=== PATIENT | male | born 2000 | race Caucasian/White ===

== ENCOUNTER 2021-10-21 12:39 | Outpatient (RCR) | payer BC, SELFPAY ==
[2021-10-21 13:55] LABS: INR 1.8; Prothrombin Time 20.2 Seconds (11.1-14.7)
== END 2022-01-19 23:59 | disposition home or self-care (01) ==
LOC: ANHLAB 12:39
PROVIDERS: PCP Family Medicine; Visit Provider Internal Medicine Cardiovascular Disease
DX: Z95.2 Presence of prosthetic heart valve (principal); Z79.01 Long term (current) use of anticoagulants
CPT/HCPCS: 36415; 85610

== ENCOUNTER 2024-07-31 12:05 | Outpatient (CLI) | payer BC, SELFPAY ==
[2024-07-31 13:04] LABS: Basophils Percent Auto 0.2 % (0.2-1.2); Eosinophils Absolute Auto 0.1 K/mm3 (0-0.3); Eosinophils Percent Auto 1.6 % (0-4.4); Hematocrit 41.2 % (42.0-52.0); Hemoglobin 13.1 g/dL (14.0-18.0); Immature Granulocyte Absolute 0.02 K/mm3 (0.00-0.031); Immature Granulocyte Percent A 0.3 % (0-0.5); Lymphocytes Absolute Auto 1.65 K/mm3 (0.9-3.2); Lymphocytes Percent Auto 28.8 % (18.3-44.2); Mean Corpuscular HGB Conc 31.8 g/dl (32-36); Mean Corpuscular Hemoglobin 27.7 pg (26-34); Mean Corpuscular Volume 87.1 fl (80-100); Mean Platelet Volume 10.4 fl (7.4-10.4); Monocytes Absolute Auto 0.5 K/mm3 (0.1-0.6); Monocytes Percent Auto 8.2 % (2.6-8.5); Neutrophils Absolute Auto 3.5 K/mm3 (1.3-6.7); Neutrophils Percent Auto 60.9 % (45.5-73.1); Platelet Count Result 264 k/mm3 (150-375); Red Blood Count 4.73 M/mm3 (4.6-6.20); Red Cell Distribution Width 13.4 % (11.5-14.5); White Blood Count 5.7 K/mm3 (4.5-10.0)
[2024-07-31 13:05] LABS: Alanine Aminotransferase 22 U/L (6-50); Alkaline Phosphatase 85 U/L (38-126); Anion Gap 8 mmol/L (4-12); Aspartate Amino Transferase 23 U/L (17-59); Bilirubin,Total 0.6 mg/dL (0.2-1.3); Blood Urea Nitrogen 12 mg/dL (9-20); Calcium 9.1 mg/dL (8.4-10.2); Carbon Dioxide 27 mmol/L (22-30); Chloride 104 mmol/L (98-107); Cholesterol 148 mg/dL (0-200); Estimated Glomerular Filt Rate > 60; Glucose 105 mg/dL (65-110); HDL Direct 29 mg/dL; Potassium 4.4 mmol/L (3.4-5.0); Sodium 139 mmol/L (137-145); Triglycerides 122 mg/dL (<150)
[2024-07-31 13:16] LABS: LDL Cholesterol Direct 90 mg/dL
--- OUTSIDE RECORDS SUMMARY | 2024-07-31 13:50 | XMS_ITS | Encounter Summary ---
Author Organization [facility] Address [address] [place] [address] Phone Care Team Providers Care Load Out Person Name Role Phone Pino Weber MD Primary Care Provider [phone] Silas Rodriguez MD Unavailable [phone] Encounter Details Date Type Department Care Team (Late st Contact Info) Description 07/24/2024 Telephone [facility] Cardiology [address] [place] [address] [place] [address] Silas Rodrgiuez MD [address] [place] [address] Social History Tobacco Use Types Packs/Day Years Used Date Smoking Tobacco: Never Smokeless Tobacco: Never Alcohol Use Standard Drinks/Week Comments Not Currently 0 (1 standard drink = 0.6 oz pur e alcohol) AUDIT-C Answer Date Recorded Q1: How often do you have a drink containing alc ohol? Never 09/09/2021 Average Number of Drinks Not on file 022 Frequency of Binge Drinking Not on file 10/2021 Sex and Gender Information Value Date Recorded Sex Assigned at Not on file Legal Sex Male 10:53 AM CDT Gender Identity Not on file Sexual Orientation Not on file documented as of this encounter Miscellaneous Notes * Telephone Encounter - Jennifer Ignacio, RN - 07/24/2024 1:45 PM CST I spoke with TY. Pt is scheduled 07/31/[address] Weber. She will fax lab results. DEBEADER * Telephone Encounter - Leti Hanna - 07/24/2024 1:08 PM CST Jennifer Pls refer to My Chart msg dated 06/13 re: request for pt to have bloodwork completed and to see hisPCP. TY with Dr Pino Weber's office - [facility] calling to let you know pt did call their office requesting to have the blood work done that Dr Rodriguez recommended. They have not seen him in the office since 2022. She will call the pt and see if she can get him scheduled for an appointment. DEBEADER documented in this encounter Plan of Treatment Not on file documented as of this encounter Visit Diagnoses Not on filedocumented in this encounter Care Teams Load Out Person Relationship Specialty Start Date End Date Pino Weber MD [address] [place] [id number] PCP - General Family Medicine 05/15/19 Silas Rodriguez MD [address] [place] [id number] Referring Physician Cardiology 05/19/19 documented as of this encounter
--- OUTSIDE RECORDS SUMMARY | 2024-07-31 13:50 | XMS_ITS | Clinical Summary ---
Author Organization [facility] Address [address] [place] [address] Care Team Providers Care Assembler Tubing Name Role Phone Vini Leonardo MD Primary Care Provider [phone] Source Comments [facility],non-owned Affiliates and Associated Physician Practices is amultiple site organization consisting of ambulatory clinics and hospital sitesin [place], [place], [place] and [place]. This disclosure is being madepursuant to the Care Everywhere program and may not contain all information available regarding this patient. Last updated 18.[facility] Allergies No known active allergies Medications * Be aware that medications may not be up to date on this document. Alwaysverify current medications with the patient. Medication Sig Dispensed Refills Start Date End Date Status atenolol (TENORMIN) 100 MG tablet Take 1 tablet by mouth once daily 30 tablet 11 06/03/2017 Active losartan (COZAAR) 50 MG tablet Take 1 tablet by mouth once daily 30 tablet 6 10/21/2017 Active Active Problems Problem Noted Date Diagnosed Date Dilated aortic root 10/15/2011 Marfan's disease 11/05/2009 Lens subluxation 10/23/2009 Amblyopia, refractive 10/23/2009 Anisometropia 10/23/2009 High myopia 10/23/2009 Family History Medical History Relation Name Comments Arrhythmia Neg Hx CVA<55(male) Neg Hx CVA<65(female) Neg Hx Cardiomyopathy Neg Hx Congenital Heart defect Neg Hx Heart Surgery Neg Hx Long QT Syndrome Neg Hx TN<55(male) Neg Hx TN<65(female) Neg Hx Marfan Syndrome Neg Hx Pacemaker Neg Hx Sudd. <30 Neg Hx Social History Tobacco Use Types Packs/Day Years Used Date Smoking Tobacco: Never Smokeless Tobacco: Never Sex and Gender Information Value Date Recorded Sex Assigned at Not on file Gender Identity Not on file Sexual Orientation Not on file Last Filed Vital Signs Vital Sign Reading Time Taken Comments Blood Pressure 108/52 10/20/2017 10:16 AM CDT Pulse 64 10/20/2017 10:16 AM CDT Temperature - - Respiratory Rate 12 10/20/2017 10:1 6 AM CDT Oxygen Saturation 96% 10/20/2017 10: 16 AM CDT Inhaled Oxygen Concentration - - Weight 136.5 kg (300 lb 14.9 oz) 2017 10:16 AM CDT Height 199.5 cm (6' 6.54 ) 10/20/2017 1 0:16 AM CDT Body Mass Index 34.3 10/20/2017 10:16 AM CDT Plan of Treatment Health Maintenance Due Date Last Done Comments HIV SCREENING 02/09/2015 HPV VACCINE (1 - Male 3-dose series) 02/09/2015 HEPATITIS C SCREENING 02/05/2018 DTAP/TDAP/TD VACCINES (1 - Tdap) 02/09/2019 HEPATITIS B VACCINE (1 of 3 - 19+ 3-dose series) 02/09/2019 COVID-19 VACCINE (1 - 2023-2 5 season) 2024 INFLUENZA VACCINE (#1) 2024 DEPRESSION SCREENING 06/07/2024 ZOSTER VACCINE (1 of 2) 02/09/2050 HIB VACCINE Aged Out No longer eligi ble based on patient's age to complete this topic MENINGOCOCCAL (Group B) VACCINE Aged Out No longer eligible based on patient's age to complete this topic MENINGOCOCCAL VACCINE Aged Out No gregoria ileana eligible based on patient's age to complete this topic PNEUMOCOCCAL VACCINE Aged Out No long er eligible based on patient's age to complete this topic Care Teams Assembler Tubing Relationship Specialty Start Date End Date Vini Leonardo MD [address] [place] [id number] PCP - General 10/13/10
--- OUTSIDE RECORDS SUMMARY | 2024-07-31 13:50 | XMS_ITS | Referral Summary ---
Author Organization [facility] Address [address] [place] [address] Care Team Providers Care Rail Equipment Operator Name Role Phone Pino Weber MD Primary Care Provider [phone] Silas Rodriguez MD Unavailable [phone] Encounters Date Type Department Care Team Description 07/26/2024 Anticoagulation Telephone Call [address] 8th [place] [address] [place] [phone] Silas Rodriguez MD remote computer terminal operator (current) use of anticoagulants (Primary Dx); H/O mechanical aortic valve replacement 07/24/[address] 8[address] [place] [address] [place] [phone] Silas Rodriguez MD 07/11/[address] 8[address] [place] [address] [place] [address] Silas Rodriguez MD Anticoagulation 06/27/2024 Anticoagulation Telephone Call [address] 8[address] [place] [address] [place] [address] Silas Rodriguez MD remote computer terminal operator (current) use of anticoagulants (Primary Dx); H/O mechanical aortic valve replacement 06/19/[address] 8[address] [place] [address] [place] [phone] Silas Rodriguez MD Anticoagulation 06/02/2024 Anticoagulation Telephone Call [address] [facility] [address] [place] [phone] Silas Rodriguez MD USP (current) use of anticoagulants (Primary Dx); H/O mechanical aortic valve replacement 06/02/2024 Orders Only [facility] Scanning, Provider 05/16/[address] [facility] 8th [place] [address] [place] [address] Silas Rodriguez MD 05/16/2024 Anticoagulation Telephone Call [address] 8[address] [place] [address] [place] [address] Silas Rodriguez MD remote computer terminal operator (current) use of anticoagulants (Primary Dx); H/O mechanical aortic valve replacement 05/16/[address] [facility] 8th [place] [address] [place] [address] Silas Rodriguez MD Anticoagulation 05/15/[address] 8[address] [place] [address] [place] [address] Silas Rodriguez MD Labs Only 05/02/2024 11:15 AM ALL AROUND PRESSER Office Visit [address] [place] [address] [place] [address] Silas Rodriguez MD H/O mechanical aortic valve replacement (Primary Dx); remote computer terminal operator (current) use of anticoagulants; Marfan's disease 05/02/2024 9:15 AM ALL AROUND PRESSER - 05/02/2024 11:59 PM ALL AROUND PRESSER Hospital Encounter [facility] [address] [place] [id number] H/O mechanical aortic valve replacement Discharge Disposition: Discharge to home or self care 05/01/2024 Anticoagulation Telephone Call [address] [facility] [address] [place] [phone] Silas Rodriguez MD remote computer terminal operator (current) use of anticoagulants (Primary Dx); H/O mechanical aortic valve replacement from Last 3 Months Allergies No known active allergies Medications acetaminophen (TYLENOL) 500 mg tabletIndicatio ns:Pain Take 2 tablets (1,000 mg total) by mouth every 6 (six) hours as needed for pain Active aspirin 81 mg enteric coated tablet Take 1 tablet (81 mg total) by mouth daily 30 tablet 11 09/17/2021 Active amoxicillin (AMOXIL) 500 mg tablet/capsuleI ndications:Prop hylaxis, Medical Take 4 tablets I hour prior to visit 05/05/2023 Active warfarin (COUMADIN) 1 mg tablet TAKE 6 TABLETS BY MOUTH ON WEDNESDAY, WEDNESDAY, AND WEDNESDAY, TAKE 5 TABLETS BY MOUTH ON ALL OTHER DAYS 430 tablet 3 04/24/2024 Active losartan (COZAAR) 25 mg tablet TAKE 1 TABLET (25 MG TOTAL) BY MOUTH DAILY. 90 tablet 3 05/11/2024 Active atenoloL (TENORMIN) 100 mg tablet TAKE 1 TABLET BY MOUTH NIGHTLY 90 tablet 3 05/28/2024 Active Active Problems Problem Noted Date Diagnosed Date USP (current) use of anticoagulants 2021 H/O mechanical aortic valve replacement 09/17/19 High risk medication use 09/14/2021 Assessment & Plan (09/15/2021 12:54 PM CDT): Lifetime use of coumadin for mechanical AVR INR goal of 2-3 Coumadin teaching with pharmacy completed 09/12 Dr. Rodriguez will follow INR Assessment & Plan (09/14/2021 10:59 AM CDT): Lifetime use of coumadin for mechanical AVR INR goal of 2-3 Coumadin teaching with pharmacy completed 09/12 Dr. Rodriguez will follow INR Acute post-operative pain 09/12/2021 Assessment & Plan (09/15/2021 12:47 PM CDT): Expected post-operatively - PRN tylenol, flexeril, and oxycodone - teach splinting technique Assessment & Plan (09/14/2021 10:55 AM CDT): Expected post-operatively - PRN tylenol, flexeril, and oxycodone - teach splinting technique Assessment & Plan (09/13/2021 11:31 AM CDT): Expected post-operatively - PRN tylenol, flexeril, and oxycodone - teach splinting technique Assessment & Plan (09/12/2021 10:01 AM CDT): Expected post-operatively - PRN tylenol, flexeril, and oxycodone - teach splinting technique Acute blood loss anemia 09/12/2021 Assessment & Plan (09/15/2021 12:47 PM CDT): Expected post-operatively - Hgb is stable - no active signs of bleeding - transfuse if Hgb < 7 or he becomes hemodynamically unstable - monitor CBC Assessment & Plan (09/14/2021 10:55 AM CDT): Expected post-operatively - Hgb is stable - no active signs of bleeding - transfuse if Hgb < 7 or he becomes hemodynamically unstable - monitor CBC Assessment & Plan (09/13/2021 11:31 AM CDT): Expected post-operatively - Hgb is stable - no active signs of bleeding - transfuse if Hgb < 7 or he becomes hemodynamically unstable - monitor CBC Assessment & Plan (09/12/2021 10:03 AM CDT): Expected post-operatively - Hgb is stable - no active signs of bleeding - transfuse if Hgb < 7 or he becomes hemodynamically unstable - monitor CBC Hypertension 09/12/2021 Assessment & Plan (09/15/2021 12:48 PM CDT): Home medications: atenolol 100mg daily, losartan 50mg daily - holding losartan in jovan-op setting - continue atenolol as able Assessment & Plan (09/14/2021 10:56 AM CDT): Home medications: atenolol 100mg daily, losartan 50mg daily - holding losartan in jovan-op setting - increase atenolol as able Assessment & Plan (09/13/2021 11:33 AM CDT): Home medications: atenolol 100mg daily, losartan 50mg daily - holding losartan in jovan-op setting - increase atenolol as able Assessment & Plan (09/12/2021 10:05 AM CDT): Home medications: atenolol 100mg daily, losartan 50mg daily - holding losartan in jovan-op setting - increase atenolol as able Obstructive sleep apnea 09/12/2021 Assessment & Plan (09/15/2021 12:48 PM CDT): Recently diagnosed with MIKAELA - per family, CPAP has been ordered for home - continue CPAP while inpatient Assessment & Plan (09/14/2021 10:56 AM CDT): Recently diagnosed with MIKAELA - per family, CPAP has been ordered for home - continue CPAP while inpatient Assessment & Plan (09/13/2021 11:35 AM CDT): Recently diagnosed with MIKAELA - per family, CPAP has been ordered for home - continue CPAP while inpatient Assessment & Plan (09/12/2021 10:06 AM CDT): Recently diagnosed with MIKAELA but does not have CPAP at home - continue CPAP while inpatient Leukocytosis 09/11/2021 Assessment & Plan (09/15/2021 12:46 PM CDT): WBC down to 10.3 from 12.2 - likely post-inflammatory - UA 4/7 was negative - Daily CBC - Aggressive Pulmonary toilet Assessment & Plan (09/14/2021 10:56 AM CDT): WBC 12.2 from 12 from 16.6 from 19.4 from 16.1 - likely post-inflammatory - UA 4/7 was negative - Daily CBC - Aggressive Pulmonary toilet Assessment & Plan (09/13/2021 11:34 AM CDT): WBC down to 12 from 16.6 from 19.4 from 16.1 - likely post-inflammatory - UA / was negative - Daily CBC - Aggressive Pulmonary toilet Assessment & Plan (09/12/2021 9:49 AM CDT): WBC 16.6 from 19.4 from 16.1 - likely post-inflammatory UA 09/11 was negative Daily CBC Aggressive Pulmonary toilet Assessment & Plan (09/11/2021 7:46 AM CDT): Daily CBC Aggressive Pulmonary toilet CXR UA Low cardiac output syndrome (CMS/HCC) 09/09/2021 Bicuspid aortic valve 06/30/2021 Assessment & Plan (09/15/2021 12:45 PM CDT): S/p ortic root replacement (25mm On-X mechanical valve in a 30mm Hemashield graft, direct reimplantation of coronary arteries) 4/5 - PT/OT - Bowel regimen - continue DVT prophylaxis until therapeutic INR - Aggressive pulmonary toilet - Wires and tubes out - on RA - switch lasix to 40mg PO bid from IV + K supplement - continue atenolol - Continue coumadin dosing - Dr. Rodriguez has agreed to follow Coumadin - will need to call his RNJennifer, when he discharges - Coumadin teaching - Discharge planning Assessment & Plan (09/14/2021 10:55 AM CDT): S/p ortic root replacement (25mm On-X mechanical valve in a 30mm Hemashield graft, direct reimplantation of coronary arteries) 4/5 - PT/OT - Bowel regimen - continue DVT prophylaxis until therapeutic INR - Aggressive pulmonary toilet - Wires and tubes out - on RA - switch lasix to 40mg PO bid from IV + K supplement - Increase atenolol - Continue coumadin dosing - Dr. Rodriguez has agreed to follow Coumadin - will need to call his RNJennifer, when he discharges - Coumadin teaching - Discharge planning Assessment & Plan (09/13/2021 11:33 AM CDT): S/p ortic root replacement (25mm On-X mechanical valve in a 30mm Hemashield graft, direct reimplantation of coronary arteries) 4 - PT/OT - Bowel regimen - continue DVT prophylaxis until therapeutic INR - Aggressive pulmonary toilet - Wires and tubes out - on RA - continue lasix to 40mg IV bid + K supplement - Increase atenolol - Continue coumadin dosing - Dr. Rodriguez has agreed to follow Coumadin - will need to call his RN, Jennifer, when he discharges - Coumadin teaching - Discharge planning Assessment & Plan (09/12/2021 9:48 AM CDT): S/p ortic root replacement (25mm On-X mechanical valve in a 30mm Hemashield graft, direct reimplantation of coronary arteries) 4/5 PT/OT Bowel regimen DVT prophylaxis pending therapeutic INR Aggressive pulmonary toilet Wires and tubes out Wean oxygen Increase lasix to 40mg IV bid + K supplement Increase atenolol Continue coumadin dosing Arrange coumadin follow-up possibly with Dr. Rodriguez, left a message for his nurses Coumadin teaching Discharge planning Assessment & Plan (09/11/2021 7:44 AM CDT): S/P mechanical AVR PT/OT Aggressive pulmonary toilet Plan to DC CT & wires today Add lasix Continue coumadin dosing Ascending aortic aneurysm 06/21/2019 Overview (06/21/2019): Added automatically from request for surgery [id number] Marfan's disease 11/05/2009 Assessment & Plan (09/15/2021 12:45 PM CDT): Dr. Rodriguez's follows - notified his office that patient is s/p surgery 09/12 - Dr. Rodriguez will follow coumadin Assessment & Plan (09/14/2021 10:56 AM CDT): Dr. Rodriguez's follows - notified his office that patient is s/p surgery 09/12 - Dr. Rodriguez will follow coumadin Assessment & Plan (09/13/2021 11:34 AM CDT): Dr. Heller follows - notified his office that patient is s/p surgery 09/12 - Dr. Rodriguez will follow coumadin Assessment & Plan (09/12/2021 9:50 AM CDT): Dr. Heller follows - notified his office that patient is s/p surgery 09/12 Assessment & Plan (09/11/2021 7:45 AM CDT): Dr. Rodriguez's follows Immunizations Immunization Administration Dates Next Due Pfizer SARS-CoV-2 Monovalent Vaccination (12+ Yrs) PURPLE 10/24/2020,10/01/2020 Social History Tobacco Use Types Packs/Day Years Used Date Smoking Tobacco: Never Smokeless Tobacco: Never Tobacco Cessation:Counseling Given: Not Answered Alcohol Use Standard Drinks/Week Comments Not Currently [...] Sign Reading Time Taken Comments Blood Pressure 133/77 05/02/2024 11:18 AM ALL AROUND PRESSER Pulse 59 05/02/2024 11:18 AM ALL AROUND PRESSER Temperature 36.8 C (98.3 F) 10/14/2021 12:00 AM CDT Respiratory Rate 18 10/14/2021 12:00 AM CDT Oxygen Saturation 95% 05/02/2024 11:18 AM ALL AROUND PRESSER Inhaled Oxygen Concentration - - Weight 219.5 kg (484 lb) 05/02/2024 11:18 AM ALL AROUND PRESSER Height 203.2 cm (6' 8 ) 05/02/2024 11:18 AM ALL AROUND PRESSER Body Mass Index 53.17 05/02/2024 11:18 AM ALL AROUND PRESSER Plan of Treatment Not on file Medical Devices Implanted Type Area Relay Associate Device Identifier Shelf Expiration Date Model / Serial / Lot [employer] [id number] Hemashield Napaimute 30mm 30cm Woven Smooth Needle Passage Suture - [id number] - [id number] Implanted:Qty: 1 on 09/09/2021 by Aleksandra Wood MD at [facility] Graft N/A: Heart [employer] 02/04/2026 [id number] / [id number] / Bard Peripheral Vascular 6x6in Patch Thk1.65mm Friendship Cardiovascular Ptfe Sterile Latex Free [id number] - [id number] Implanted:Qty: 1 on 09/09/2021 by Aleksandra Wood MD at [facility] Other - see comments N/A: Heart [employer] 01/01/2026 [id number] / / Description:Friendship strips Valve Aortic On-X Titanium Carbon Ptfe Od34 Mm Cylindrical H14.2 Mm H17.8 Mm Od25 Mm Odsec23.4 Mm Heart Mechanical Anatomic Sewing Ring Extend Rosado Intrasupra Annular - [id number] - [id number] Implanted:Qty: 1 on 09/09/2021 by Aleksandra Wood MD at [facility] Prosthetic Valve N/A: Heart On-X Intrnl 02/20/2027 ONXANE-2 5 / [id number] / Procedures Procedure Name Priority Date/Time Associated Diagnosis Comments PROTIME-INR Routine 07/26/2024 PROTIME-INR Routine 06/24/2024 PROTIME-INR Routine 06/02/2024 SCAN - LABS 06/02/2024 PROTIME-INR Routine 05/16/2024 CTA CHEST W CONTRAST Schedule Routine, Read Routine (OP Routine) 05/02/2024 9:43 AM ALL AROUND PRESSER H/O mechanical aortic valve replacement POCT CREATININE - DEVICE Routine 05/02/2024 9:29 AM ALL AROUND PRESSER from Last 3 Months Results * (ABNORMAL) Protime-INR (07/26/2024) INR 2.00(A) 0.90 - 1.10 EXTERNAL LAB Blood Result [facility] Silas Rodriguez MD LAB BLOOD ORDERABLES F inal Result Performing Organization Address City/[facility]/ZIP Co de Phone Number EXTERNAL LAB * (ABNORMAL) Protime-INR (06/24/2024) INR 2.00(A) 0.90 - 1.10 EXTERNAL LAB Blood 06/24/2024 Silas Rodriguez MD LAB BLOOD ORDERABLES F inal Result Performing Organization Address [facility]/ZIP Co de Phone Number EXTERNAL LAB * SCAN - LABS (06/02/2024) Provider Scanning Final Result * (ABNORMAL) Protime-INR (06/02/2024) INR 2.00(A) 0.90 - 1.10 EXTERNAL LAB Blood 06/02/2024 [facility] Milagro APODACA LAB BLOOD ORDERABLES Evelyn l Result Performing Organization Address City/[facility]/ZIP Co de Phone Number EXTERNAL LAB * (ABNORMAL) Protime-INR (05/16/2024) INR 2.00(A) 0.90 - 1.10 EXTERNAL LAB Blood Result [facility] Silas Rodriguez MD LAB BLOOD ORDERABLES F inal Result EXTERNAL LAB * CTA Chest W Contrast (05/02/2024 9:43 AM ALL AROUND PRESSER) Anatomical Region Laterality Modality Chest N/A Computed Tomogra phy 05/02/2024 10:1 4 AM ALL AROUND PRESSER Impressions 05/02/2024 10:14 AM ALL AROUND PRESSER Stable postsurgical changes of aortic root and ascending aorta repair without evidence of complications. Electronically signed by: Lux El M.D. Narrative 05/02/2024 10:14 AM ALL AROUND PRESSER EXAMINATION: CTA CHEST W CONTRAST HISTORY: Mechanical aortic valve replacement TECHNIQUE: CT angiography of the chest was performed prior to and following the uneventful intravenous administration of 120 ml Optiray-350 using the angiographic protocol. Vascular 3D images were generated on a dedicated workstation and also interpreted. COMPARISON: 05/05/2022 FINDINGS: Mechanical aortic valve is present with ascending aorta reconstruction. The aortic root measures 32 x 31 mm, unchanged. Ascending aorta reconstruction measures 34 x 30 mm through the common, unchanged. There is a left-sided arch with three-vessel branching pattern. No pericardial effusion. The thoracic lymphadenopathy. Thyroid is unremarkable. Esophagus is nondistended. Lungs are clear. No pleural effusions. No pneumothorax. No suspicious pulmonary nodules. No acute or aggressive osseous abnormalities. Median sternotomy. No acute process within the partially imaged abdomen. Procedure Note Lux El MD - 05/02/2024 EXAMINATION: CTA CHEST W CONTRAST HISTORY: Mechanical aortic valve replacement TECHNIQUE: CT angiography of the chest was performed prior to and following the uneventful intravenous administration of 120 ml Optiray-350 using the angiographic protocol. Vascular 3D images were generated on a dedicated workstation and also interpreted. COMPARISON: 05/05/2022 FINDINGS: Mechanical aortic valve is present with ascending aorta reconstruction. The aortic root measures 32 x 31 mm, unchanged. Ascending aorta reconstruction measures 34 x 30 mm through the common, unchanged. There is a left-sided arch with three-vessel branching pattern. No pericardial effusion. The thoracic lymphadenopathy. Thyroid is unremarkable. Esophagus is nondistended. Lungs are clear. No pleural effusions. No pneumothorax. No suspicious pulmonary nodules. No acute or aggressive osseous abnormalities. Median sternotomy. No acute process within the partially imaged abdomen. IMPRESSION: Stable postsurgical changes of aortic root and ascending aorta repair without evidence of complications. Electronically signed by: Lux El M.D. Silas Rodriguez MD IMG CT PROCEDURES Evelyn l Result * POCT creatinine (05/02/2024 9:29 AM ALL AROUND PRESSER) Creatinine POC 1.0 0.7 - 1.3 mg/dL Blood 05/02/2024 9:29 AM ALL AROUND PRESSER 05/02/2024 9:29 AM ALL AROUND PRESSER us Self Referral LAB POCT ORDERABLES - DEVICE Fin al Result Performing Organization Address City/State/[facility] Co de Phone Number [facility] Department [place] [address] from Last 3 Months Insurance [employer] Advance Directives For more information, please contact: [phone] * Full Code (Latest Code Status on File) Date Activated Date Inactivated Comments 09/09/2021 1:18 PM 09/16/2021 6:54 PM Care Teams Rail Equipment Operator Relationship Specialty Start Date End Date Pino Weber MD [address] [place] [address] PCP - General Family Medicine 05/15/19 Silas Rodriguez MD [address] [place] [address] Referring Physician Cardiology 05/19/19
--- OUTSIDE RECORDS SUMMARY | 2024-07-31 13:50 | XMS_ITS | Clinical Summary ---
Author Organization [facility] Address [address] [place] [address] Care Team Providers Care Insurance Verification Specialist Name Role Phone Pino Weber MD Primary Care Provider [phone] Silas Rodriguez MD Unavailable [phone] Allergies No known active allergies Medications acetaminophen [...] Active Problems Problem Noted Date Diagnosed Date emt intermediate (current) use of anticoagulants 2021 H/O mechanical [...] from 16.1 - likely post-inflammatory - UA /7 was negative - Daily CBC - Aggressive Pulmonary toilet Assessment & Plan (09/12/2021 9:49 AM CDT): WBC 16.6 from 19.4 from 16.1 - likely post-inflammatory UA /7 was negative Daily CBC Aggressive Pulmonary toilet [...] (06/21/2019): Added automatically from request for surgery [id number] Marfan's disease 11/05/2009 Assessment & Plan (09/15/2021 12:45 PM CDT): Dr. Rodriguez's follows - notified his office that patient is s/p surgery 09/12 - Dr. Rodriguez will follow coumadin Assessment & Plan (09/14/2021 10:56 AM CDT): Dr. Rodriguez's follows - notified his office that patient is s/p surgery 09/12 - Dr. Rodriguez will follow coumadin Assessment & Plan (09/13/2021 11:34 AM CDT): Dr. Rodriguez's follows - notified his office that patient is s/p surgery 09/12 - Dr. Rodriguez will follow coumadin Assessment & Plan (09/12/2021 9:50 AM CDT): Dr. Heller follows - notified his office that patient is s/p surgery 09/12 Assessment & Plan (09/11/2021 7:45 AM CDT): Dr. Rodriguez's follows Encounters Date Type Department Care Team Description 07/26/2024 Anticoagulation Telephone Call [facility] Cardiology [facility] 8th [place] [address] [place] [address] Silas Rodriguez MD emt intermediate (current) use of anticoagulants (Primary Dx); H/O mechanical aortic valve replacement 07/24/2024 Telephone [facility] Cardiology [facility] 8th [place] [address] [place] [address] Silas Rodriguez MD 07/11/2024 Telephone [facility] Cardiology [facility] 8th [place] [address] [place] [address] Silas Rodriguez MD Anticoagulation 06/27/2024 Anticoagulation Telephone Call [address] [place] [address] Silas Rodriguez MD emt intermediate (current) use of anticoagulants (Primary Dx); H/O mechanical aortic valve replacement 06/19/[address] [place] [address] [place] [address] Silas Rodriguez MD Anticoagulation 06/02/2024 Anticoagulation Telephone Call [address] Medical Office Building [address] [place] [address] Silas Rodriguez MD emt intermediate (current) use of anticoagulants (Primary Dx); H/O mechanical aortic valve replacement 06/02/2024 Orders Only [facility] Scanning, Provider 05/16/[address] [place] [address] Silas Rodriguez MD 05/16/2024 Anticoagulation Telephone Call [address] [place] [address] Silas Rodriguez MD group home (current) use of anticoagulants (Primary Dx); H/O mechanical aortic valve replacement 05/16/[address] [place] [address] Silas Rodriguez MD Anticoagulation 05/15/[address] [place] [address] Silas Rodriguez MD Labs Only 05/02/2024 11:15 AM BIBLIOGRAPHIC SERVICES SPECIALIST Office Visit [address] [place] [address] [place] [address] Silas Rodriguez MD H/O mechanical aortic valve replacement (Primary Dx); group home (current) use of anticoagulants; Marfan's disease 05/02/2024 9:15 AM BIBLIOGRAPHIC SERVICES SPECIALIST - 05/02/2024 11:59 PM BIBLIOGRAPHIC SERVICES SPECIALIST Hospital Encounter [facility] [address] [place] [address] H/O mechanical aortic valve replacement Discharge Disposition: Discharge to home or self care 05/01/2024 Anticoagulation Telephone Call [facility] Cardiology [address] [facility] Medical Office Building [address] [place] [address] Silas Rodriguez MD emt intermediate (current) use of anticoagulants (Primary Dx); H/O mechanical aortic valve replacement from Last 3 Months Immunizations Immunization Administration Dates Next Due Pfizer SARS-CoV-2 Monovalent Vaccination (12+ Yrs) PURPLE 10/24/2020,10/01/2020 Surgical History Surgery Date Site/Laterality Comments EXAMINATION UNDER ANESTHESIA 07/08/2021 - 08/04/2021 ROSE Medical History Medical History Date Comments Marfan's disease Dilated aortic root (CMS/HCC) (HCC) Sleep apnea +Sleep study don e 08/2021 but pt hasn't gotten CPAP machine yet Morbid obesity (HCC) Family History Medical History Relation Name Comments Hypertension Father Anesthesia problems Neg Hx Relation Name Status Comments Father Social History Tobacco Use Types Packs/Day Years [...] on file Sexual Orientation Not on file Obstetrics History Last Filed Vital Signs Vital Sign Reading Time Taken Comments Blood Pressure 133/77 05/02/2024 11:18 AM BIBLIOGRAPHIC SERVICES SPECIALIST Pulse 59 05/02/2024 11:18 AM BIBLIOGRAPHIC SERVICES SPECIALIST Temperature 36.8 C (98.3 F) 10/14/2021 12:00 AM CDT Respiratory Rate 18 10/14/2021 12:00 AM CDT Oxygen Saturation 95% 05/02/2024 11:18 AM BIBLIOGRAPHIC SERVICES SPECIALIST Inhaled Oxygen Concentration - - Weight 219.5 kg (484 lb) 05/02/2024 11:18 AM BIBLIOGRAPHIC SERVICES SPECIALIST Height 203.2 cm (6' 8 ) 05/02/2024 11:18 AM BIBLIOGRAPHIC SERVICES SPECIALIST Body Mass Index 53.17 05/02/2024 11:18 AM BIBLIOGRAPHIC SERVICES SPECIALIST Plan of Treatment Health Maintenance Due Date Last Done Comments Depression Screening 2000 Hepatitis C Screening 2000 DTaP/Tdap/Td Vaccine (3 - Tdap) 02/09/2011 2000, 2000 Varicella Vaccines (1 of 2 - 13+ 2-dose series) 02/09/2013 HPV Vaccines (1 - Male 3-dos e series) 02/09/2015 Regular Well Visit/Exam 18-64 02/09/2018 Covid-19 Vaccine (4 - 2023-2 5 season) 2024 07/05/2021, 10/24/2020, 10/01/2020 Influenza Vaccine (#1) 2024 Hepatitis B Screening Completed 2000 , 2000 Pneumococcal vaccine <65 Aged Out 001, 2000 No longer eligible based on patient's age to complete this topic Medical Devices Implanted Type Area Crayon Molding Machine Operator Device Identifier Shelf Expiration Date Model / Serial / Lot [employer] [id number] Hemashield [place] 30mm 30cm Woven Smooth Needle Passage Suture - [id number] - [id number] Implanted:Qty: 1 on 09/09/2021 by Aleksandra Wood MD at [facility] Graft N/A: Heart [employer] 02/04/2026 [id number] / [id number] / Bard Peripheral Vascular 6x6in Patch Thk1.65mm [place] Cardiovascular Ptfe Sterile Latex Free [id number] - [id number] Implanted:Qty: 1 on 09/09/2021 by Aleksandra Wood MD at [facility] Other - see comments N/A: Heart [employer] Peripheral Vascular 01/01/2026 [id number] / / Description:[place] strips Valve Aortic On-X Titanium Carbon Ptfe Od34 Mm Cylindrical H14.2 Mm H17.8 Mm Od25 Mm Odsec23.4 Mm Heart Mechanical Anatomic Sewing Ring Extend Rosado Intrasupra Annular - [id number] - [id number] Implanted:Qty: 1 on 09/09/2021 by Aleksandra Wood MD at [facility] Prosthetic Valve N/A: Heart On-X Intrnl 02/20/2027 ONXANE-2 5 / [id number] / Procedures Procedure Name Priority Date/Time Associated Diagnosis Comments PROTIME-INR Routine 07/26/2024 PROTIME-INR Routine 06/24/2024 PROTIME-INR Routine 06/02/2024 SCAN - LABS 06/02/2024 PROTIME-INR Routine 05/16/2024 CTA CHEST W CONTRAST Schedule Routine, Read Routine (OP Routine) 05/02/2024 9:43 AM BIBLIOGRAPHIC SERVICES SPECIALIST H/O mechanical aortic valve replacement POCT CREATININE - DEVICE Routine 05/02/2024 9:29 AM BIBLIOGRAPHIC SERVICES SPECIALIST from Last 3 Months Results * (ABNORMAL) Protime-INR (07/26/2024) INR 2.00(A) 0.90 - 1.10 EXTERNAL LAB Blood Silas Rodriguez MD LAB BLOOD ORDERABLES F inal Result EXTERNAL LAB * (ABNORMAL) Protime-INR (06/24/2024) INR 2.00(A) 0.90 - 1.10 EXTERNAL LAB Blood 06/24/2024 Silas Rodriguez MD LAB BLOOD ORDERABLES F inal Result EXTERNAL LAB * SCAN - LABS (06/02/2024) Provider Scanning Final Result * (ABNORMAL) Protime-INR (06/02/2024) INR 2.00(A) 0.90 - 1.10 EXTERNAL LAB Blood 06/02/2024 Historical Provider LAB BLOOD ORDERABLES Evelyn l Result EXTERNAL LAB * (ABNORMAL) Protime-INR (05/16/2024) INR 2.00(A) 0.90 - 1.10 EXTERNAL LAB Blood Silas Rodriguez MD LAB BLOOD ORDERABLES F inal Result Performing Organization Address City/[facility] Co de Phone Number EXTERNAL LAB * CTA Chest W Contrast (05/02/2024 9:43 AM BIBLIOGRAPHIC SERVICES SPECIALIST) Anatomical Region Laterality Modality Chest N/A Computed Tomogra phy 05/02/2024 10:1 4 AM BIBLIOGRAPHIC SERVICES SPECIALIST Impressions 05/02/2024 10:14 AM BIBLIOGRAPHIC SERVICES SPECIALIST Stable postsurgical changes of aortic root and ascending aorta repair without evidence of complications. Electronically signed by: Lux El M.D. Narrative 05/02/2024 10:14 AM BIBLIOGRAPHIC SERVICES SPECIALIST EXAMINATION: CTA CHEST W CONTRAST HISTORY: Mechanical [...] Result * POCT creatinine (05/02/2024 9:29 AM BIBLIOGRAPHIC SERVICES SPECIALIST) Creatinine POC 1.0 0.7 - 1.3 mg/dL Blood 05/02/2024 9:29 AM BIBLIOGRAPHIC SERVICES SPECIALIST 05/02/2024 9:29 AM BIBLIOGRAPHIC SERVICES SPECIALIST us Self Referral LAB POCT ORDERABLES - DEVICE Fin al Result [facility] [place] [address] from Last 3 Months Insurance BLUE ACCESS OOS BLUE ACCESS OOS BLUE ACCESS OOS [employer] ACCESS OOS Advance Directives For more information, please contact: [phone] * Full Code (Latest Code Status on File) Date Activated Date Inactivated Comments 09/09/2021 1:18 PM 09/16/2021 6:54 PM Care Teams Insurance Verification Specialist Relationship Specialty Start Date End Date Pino Weber MD [address] [place] [id number] PCP - General Family Medicine 05/15/19 Silas Rodriguez MD [address] [place] [id number] Referring Physician Cardiology 05/19/19
--- OUTSIDE RECORDS SUMMARY | 2024-07-31 13:50 | XMS_ITS | Continuity of Care Document ---
Author Organization [facility] Address [address] [place] [address] [place] [address] Phone Care Team Providers Care Direct Marketing Intern Name Role Phone Felicia ANGULO, Jaimie Unavailable Unavailable Allergies, Adverse Reactions, Alerts Substance Reaction Status Criticality No Known Allergies Active No Inform ation Medications Medication Instructions Dosage Effective Dates (start - stop) Status Comments atenolol 100 mg tablet take 1 tablet by oral route every day 100 MG - Active losartan 50 mg tablet take 1 tablet by o ral route every day 50 MG - Active Procedures Procedure Date No Charge Optomap Fundus Photos 022 Corneal Topography Office/outpatient Visit, Est No Charge Optomap Fundus Photos 019 No Charge Orbscan Office/outpatient Visit, Est No Charge Optomap Fundus Photos 019 Corneal Topography Office/outpatient Visit, Est Eye Exam, New Patient Corneal Topography No Charge Optomap Fundus Photos 018 Advance Directives Directive Yes / No Effective Date File Name No Information Encounters Encounter Description Practice Location Reason(s) For Visit Diagnoses Date Provider Providers Copied on Encounter Office/outpa tient Visit, Est [facility], [address], [place], [place], [id number], [place] tel:[phone] SEC Osman BATES Professional Complete (chief complaint) Marfans syndromePhaco donesisLens dislocation Mar-0 1-202 2 Felicia OD Jaimie. [address], [place], [place], [id number], [place]. tel:[phone] Specialist: Silas Rodriguez MD, [address] [facility] [address], [place], [address]. tel:[phone] ng Provider: Susie Nolan OD, [facility] [address] [facility], [place], [address]. tel:[phone] Office/outpa tient Visit, Est [facility], [address], [place], [place], [id number], [place] tel:[phone] SEC Osman BATES Professional 6 month Cornea check (chief complaint) Marfans syndromePhaco donesisLens dislocation Sep-1 0-201 9 R[address] [place]. [address], [place], [place], [id number], [place]. tel:[phone] Silas Rodriguez MD.Referring Provider: Jeronimo Vincent, [address], [place], [address]. tel:[phone] Office/outpa tient Visit, [facility], [address], [place], [place], [address], [place] tel:[phone] SEC Osman BATES Professional 6 month lens check (chief complaint) Marfans syndromeLens dislocationPh acodonesis Aug-1 2-201 9 [address] [place]. [address], [place], [place], [address], [place]. tel:[phone] Referring Provider: Jeronimo Vincent, [address], [place], [address]. tel:[phone] [facility], [address], [place], [place], [address], [place] tel:[phone] SEC Osman BATES Professional Complete Exam (chief complaint) Marfans syndromeLens dislocation 8 [address] [place]. [address], [place], [place], [id number], [place]. tel:[phone] Specialist: Silas Rodriguez MD, [address] [facility] [address], [place], [address]. tel:[phone] ng Provider: Jeronimo Higgins Melisa, [address], [place], [address]. tel:[phone] Family History Family Member Type Diagnosis Age At Onset Problem (finding) Family history of degenerative disorder of macula Problem (finding) Family history of Diabe elaine mellitus Payers Payer name Insurance type Covered republican ID Authoriza tiirina(s) [place] [id number] Social History Type Description Quantity Date Captured Comments Alcohol Use Details No Caffeine Use Details Tobacco Use Status Current non-smoker Smoking Status Never smoker Non-Smoking Tobacco Use Details : No Details Available : No Details Available Sex Male Chief Complaint And Reason For Visit From encounter dated '08/05/2021 13:00'. Complete (chief complaint). Description: The 21 year old male presents for evaluation of Complete in the right eye and left eye. Hx of Marfan's Syndrome, Lens dislocation OS, and PhacodonesisOD. Patient denies any problems or changes with eyes. VA seems stable OU. Patient wearing his CL's today sees [facility] for glasses and contacts. Reason For Referral Reason For Referral No Information Plan Of Treatment Date Type Action Status Patient Education Marfan Syndrome: Care I nstructions completed History Of Present Illness Encounter Date Complaint History Of Prese nt Illness Complete The 21 year old male presents for evaluation of Complete in the right eye and left eye. Hx of Marfan's Syndrome, Lens dislocation OS, and Phacodonesis OD. Patient denies any problems or changes with eyes. VA seems stable OU. Patient wearing his CL's today sees [facility] for glasses and contacts. 6 month Cornea check The 19 year old male presents for evaluation of 6 month Cornea check in the right eye and left eye. Hx of Marfan's Syndrome and Lens dislocation OU and Phacodonesis OU. Patient denies any problems or changes with VA. Patient is a CL's wearer has them in today patient is seen at [facility] for glasses and CL's. Patient mom states they are who referred them to us. 6 month lens check The 18 year 6 month old male presents for evaluation of 6 month lens check in the right eye and left eye. Hx of Marfan's Syndrome and Lens dislocation OU. Patient denies any problems or changes with eyes. Patient has CL's in. Complete Exam The 18 year old male presents for evaluation of Complete Exam in the right eye and left eye. Eval for Marfan's Syndrome. Pt is a cls wearer fit by [facility]. Pt was recommend to us verses going to the [facility]. Pt states vision is clear and stable OU at distance and near x 1 yr. Pt using no gtts at this time. Functional Status Date Functional Assessmen t No Information Instructions Date Instruction Additional Infor efren Impression/Plan Impression/Plan Impression/Plan Impression/Plan Assessments Type Assessment Date assessment Marfans syndrome assessment Phacodonesis assessment Lens dislocation Patient Care Teams Name Effective Dates (start - stop) Status Members No Information
--- OUTSIDE RECORDS SUMMARY | 2024-07-31 13:50 | XMS_ITS | Patient Health Summary ---
Author Organization [facility] Address [address] [place] [address] Care Team Providers Care Fat Purification Worker Name Role Phone Vini Leonardo MD Primary Care Provider [phone] Note from [facility],non-owned Affiliates and Associated Physician Practices is amultiple site organization consisting of ambulatory clinics and hospital sitesin [place], [place], [place] and [place]. This disclosure is being madepursuant to the Care Everywhere program and may not contain all information available regarding this patient. Last updated 18.[facility] Allergies No known active allergies Medications * Be aware that medications may not be up to date on this document. Alwaysverify current medications with the patient. 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 Social History Tobacco Use Types Packs/Day Years [...] Mass Index 34.3 10/20/2017 10:16 AM CDT Procedures * ECHO CONSULT - PEDIATRIC(Performed 10/20/2017) Performed for Marfan's disease (HCC) * ECHO CONSULT - PEDIATRIC(Performed 05/14/2017) Performed for Marfan's disease (HCC), Dilated aortic root (HCC) * EKG 15-LEAD(Performed 05/14/2017) Performed for Marfan's disease (HCC), Dilated aortic root (HCC) * MRI ANGIO CHEST WO CONTRAST(Performed 04/28/2017) Performed for Dilated aortic root (HCC), Marfan's disease (HCC) * MRI CARDIAC STUDY WO CONTRAST(Performed 04/28/2017) Performed for Dilated aortic root (HCC), Marfan's disease (HCC) * ECHO CONSULT - PEDIATRIC(Performed 06/12/2016) Performed for Dilated aortic root (HCC) * ECHO CONSULT - PEDIATRIC(Performed 07/12/2015) Performed for Dilated aortic root (HCC) * EKG 15-LEAD(Performed 07/12/2015) Performed for Marfan's disease (HCC) * ECHO CONSULT - PEDIATRIC(Performed 02/09/2014) Performed for Dilated aortic root (HCC), Marfan's disease (HCC) * EKG 15-LEAD(Performed 02/09/2014) Performed for Marfan's disease (HCC) * ECHO CONSULT - PEDIATRIC(Performed 01/06/2013) Performed for Marfan's disease (HCC) * CARDIAC ECHOCARDIOGRAM COMPLETE ORDER(Performed 10/15/2011) * ECHO CONSULT - PEDIATRIC(Performed 10/15/2011) Performed for Marfan's disease (HCC), Dilated aortic root (HCC) * EKG 15-LEAD(Performed 10/15/2011) Performed for Marfan's disease (HCC), Dilated aortic root (HCC) * EKG 15-LEAD(Performed 04/25/2010) Performed for Marfan's disease (HCC) * ECHO CONSULT - PEDIATRIC(Performed 04/24/2010) Performed for Marfan's disease (HCC) * ECHO CONSULT - PEDIATRIC(Performed 11/05/2009) Performed for Marfan's Disease (HCC) * EKG 15-LEAD(Performed 11/05/2009) Performed for Marfan's Disease (HCC) * HOLTER MONITOR(Performed 11/05/2009) Performed for Marfan's Disease (HCC) Results * ECHO CONSULT - PEDIATRIC (10/20/2017 10:32 AM CDT) Only the most recent of9 resultswithin the time period is included. 10/20/2017 10:3 2 AM CDT Narrative Procedure Note Francesca Silva MD - 10/21/2017 [facility] [place] [id number] Fax Congenital Transthoracic Report Pat.Name: DONYA CAIN Pat.ID: [id number] .Date: 10/20/2017 Exam Time: 10:32:00 AM Study Type:Congenital TTE Height: 199.49cm Weight: 136.5kg BSA: 2.7 m2 Age: 9 2000,17Y Sex: MALE BP: 108/52 Sonogrphr: Yoselin Murray RDCS Pat. Stat.:Outpatient CPT - 4: [id number], [id number], [id number] Reason for Study:Marfans History / Clinical:Comments = Marfans Procedures:Color Flow, 2D Congenital Limited, Doppler Limited Race: 2 Visit ID: [id number] SUMMARY: Impression: Marfan syndrome. Functionally bicuspid aortic valve with fusion of right/left commissure(noted on MRI); not well visualized today. No aortic stenosis Mild aortic insufficiency Dilated aortic root (43mm; z-score 2.3). Normal left ventricular systolic function. Findings: Anatomic Relationships: Abdominal situs not evaluated. There is levocardia. Atrial situs solitus. The AV alignment is concordant. The ventricular looping is D-looped. The VA connection is concordant. The arterial relationships are normal. Systemic Veins: There is a SVC not visualized. There is IVC not visualized. Pulmonary Veins: At least two pulmonary veins drain to the left atrium. Right Atrium: The right atrial size is normal. Left Atrium: The left atrial size is normal. Atrial Septum: Not well visualized. Left to right atrial shunt, none. Tricuspid Valve: The tricuspid valve is structurally normal. There is no stenosis. There is mild regurgitation present. Mitral Valve: The mitral valve is structurally normal. There is no stenosis. There is no regurgitation present. Right Ventricle: The cavity size is normal. The wall thickness is normal. The systolic function is normal. RV Outflow Tract: The outflow tract is normal. Left Ventricle: The cavity size is normal. The wall thickness is normal. The systolic function is normal. LV Outflow Tract: The outflow tract is normal. Ventricular Septum: The septal motion is normal. There is no defect with no shunting. Pulmonary Valve: The pulmonic valve is structurally normal. There is no stenosis. There is physiologic regurgitation. Aortic Valve: The aortic valve is functionally bicuspid. There is no stenosis. There is mild regurgitation present. Pulmonary Artery: The MPA is normal. The LPA is normal. The RPA is normal. Aorta: The aortic root is abnormal with dilated sinuses. The aortic arch is patent. The arch sidedness is not evaluated. PDA: There is no PDA with no shunting. Coronary Arteries: Not visualized. MEASUREMENTS: 2D Aorta AoRdiam 29 mm (zsc -1.4) Ao Sin 43.3 mm (zsc 2.3) Ao StJx 33.4 mm DOPPLER Tricuspid Valve TR pkVel 2.2 m/s TR pkPG 19 mmHg Signed 10/21/2017 12:31 PM Francesca Silva MD Francesca Silva MD ECHO ORDERABLES Performing Organization Address [facility] Co de Phone Number [facility] [address] [place] [address] * EKG 15-LEAD (05/14/2017 10:02 AM DESIGN ASSISTANT) Only the most recent of6 resultswithin the time period is included. Ventricular Rate 56 BPM CG MUSE Atrial Rate 56 BPM CG MUSE P-R Interval 170 ms CG MUSE QRS Duration ms 92 ms CG MUSE Q-T Interval ms 402 ms CG MUSE QTC Calculation (Bezet) 387 ms CG MUSE Calculated P [place] 42 degrees CG MUSE Calculated R [place] 77 degrees CG MUSE Calculated T [place] 53 degrees CG MUSE Interpretation EKG Sinus bradycardia Otherwise normal ECG Confirmed by Francesca Silva ([id number]) on 05/14/2017 1:21:15 PM CG MUSE 05/14/2017 10:0 2 AM DESIGN ASSISTANT 05/14/2017 1:21 PM DESIGN ASSISTANT Francesca Silva MD ECG ORDERABLES Performing Organization Address [facility] Co de Phone Number CG MUSE * MRA CHEST NON CONTRAST (04/28/2017 9:08 AM DESIGN ASSISTANT) Anatomical Region Laterality Modality Chest Magnetic Resonan ce 04/28/2017 12:0 9 PM DESIGN ASSISTANT Impressions 04/28/2017 3:42 PM DESIGN ASSISTANT Impression 1. Marfan Syndrome. 2. Dilated aortic root and normal-sized ascending aorta (Aortic root: 4.4 x 4.35 cm, z: +2.5; Ascending aorta: 2.8 cm, z: -0.7) 3. Bicuspid aortic valve with left-right fusion with mild insufficiency. 4. Normal left ventricular size and systolic function. 5. Normal right ventricular size and systolic function. Study was reviewed by Dr. Yuri Ferreira and Dr. Carlito Guzman Narrative 04/28/2017 3:42 PM DESIGN ASSISTANT Examination: Cardiac MRI morphology and function, Chest MRA contrast. Weight: 134.9 kg, Height: 197.5 cm, BSA: 2.67 m2 History: 17 year old male with history of Marfan Syndrome. Last echocardiogram from 06/12/2016 showed a bicuspid aortic valve with fusion of the left-right commissure. The aortic root measured 41 mm, z: +2.5, and the ascending aorta was normal measuring 31 mm. There was mild mitral valve prolapse.. Indication: MRI was performed to evaluate left ventricular size and function, aortic root, aortic arch. Sedation: No sedation was required. Comparison: None Technique: Using a 8 channel cardiac coil on a 1.5 T Deluux, the following sequences were performed: Three plane localizer. FIESTA single shot axial stack, FIESTA cine: 2 chamber left, 4 chamber, ventricular short-axis stack, ventricular long-axis stack, left ventricular outflow tract, Sagittal oblique long-axis of the aorta, Aortic root short-axis, respiratory gated ECG gated 3D whole heart FIESTA across the whole heart. Findings: The heart position is levocardic. The stomach is on the left. The liver is on the right. The superior vena cava and inferior vena cava drains into the right atrium. The right atrium is normal. The tricuspid valve is normal. The right ventricle is normal in size and function. Right ventricular?outflow tract is patent. Pulmonary valve is normal with no stenosis or regurgitation. The main pulmonary artery is patent. The branch pulmonary arteries are confluent. The left and right pulmonary artery are normal in course and caliber. Four pulmonary veins drain into the left atrium. The left atrium is normal. The mitral valve is normal. The left ventricle is normal in size and function. The left ventricular outflow tract is patent. The aortic valve is bicuspid with left-right fusion. There is mild insufficiency.. The aortic root is dilated, measuring 4.4x 4.3 cm in cross-section The ascending aorta is normal, measuring 2.8 cm in diameter. The coronary arteries have normal origins. The aortic arch is left-sided with normal branching. The aortic arch demonstrates no narrowing, aneurysm, or dissection. No patent ductus arteriosus is seen. There is no pericardial effusion. No atrial septal defect or ventricular septal defect is seen . Aortic Root measurements: Sinus of Valsalva: 4.4 cm (z-score: 2.5; normal range: 2.57 - 4.19 cm) ST Junction: 3.7 cm (z-score: 2.1; normal range: 2.17 - 3.66 cm) Arch Measurements: Ascending aorta at the level of the branch pulmonary arteries: 2.8 cm (z-score: -0.7; normal range: 2.32 - 3.86 cm) Proximal Transverse arch: 2.54 cm Distal Transverse Arch: 2.2 cm (z-score: -1; normal range: 1.87 - 3.18 cm) Juxtaductal position: 2.3 cm (z-score: 0.7; normal range: 1.29 - 2.77 cm) Aorta at the diaphragm: 1.8 cm Left Ventricular Functional Analysis: LV end diastolic volume: 213.5 mL LVEDV/BSA: 80 ml/m2 (z-score: -0.2, normal range: 53 - 112 ml/m2) LV end systolic volume: 87.8 mL LV end systolic volume/BSA: 32.9 mL/m2 LV Stroke volume:?125.7 mL LV ejection fraction:58.9% (normal: 55-73%) Right Ventricular Functional Analysis: RV end diastolic volume: 218.6 mL RVEDV/BSA: 81.9 ml/m2 (z-score: -0.3, normal range: 58 - 114 ml/m2) RV end systolic volume: 104.3 mL RV end systolic volume/BSA: 39.1 mL/m2 RV Stroke volume: 114.3 mL Right Ventricular ejection fraction: 52.3% (normal: 48-63%) Phase Contrast: aortic valve Net flow: 128.7 mL/beat Procedure Note Carlito Guzman MD - 04/28/2017 Examination: Cardiac MRI morphology and function, Chest MRA contrast. Weight: 134.9 kg, Height: 197.5 cm, BSA: 2.67 m2 History: 17 year old male with history of Marfan Syndrome. Last echocardiogram from 06/12/2016 showed a bicuspid aortic valve with fusion of the left-right commissure. The aortic root measured 41 mm, z: +2.5, and the ascending aorta was normal measuring 31 mm. There was mild mitral valve prolapse.. Indication: MRI was performed to evaluate left ventricular size and function, aortic root, aortic arch. Sedation: No sedation was required. Comparison: None Technique: Using a 8 channel cardiac coil on a 1.5 T Deluux, the following sequences were performed: Three plane localizer. FIESTA single shot axial stack, FIESTA cine: 2 chamber left, 4 chamber, ventricular short-axis stack, ventricular long-axis stack, left ventricular outflow tract, Sagittal oblique long-axis of the aorta, Aortic root short-axis, respiratory gated ECG gated 3D whole heart FIESTA across the whole heart. Findings: The heart position is levocardic. The stomach is on the left. The liver is on the right. The superior vena cava and inferior vena cava drains into the right atrium. The right atrium is normal. The tricuspid valve is normal. The right ventricle is normal in size and function. Right ventricular?outflow tract is patent. Pulmonary valve is normal with no stenosis or regurgitation. The main pulmonary artery is patent. The branch pulmonary arteries are confluent. The left and right pulmonary artery are normal in course and caliber. Four pulmonary veins drain into the left atrium. The left atrium is normal. The mitral valve is normal. The left ventricle is normal in size and function. The left ventricular outflow tract is patent. The aortic valve is bicuspid with left-right fusion. There is mild insufficiency.. The aortic root is dilated, measuring 4.4x 4.3 cm in cross-section The ascending aorta is normal, measuring 2.8 cm in diameter. The coronary arteries have normal origins. The aortic arch is left-sided with normal branching. The aortic arch demonstrates no narrowing, aneurysm, or dissection. No patent ductus arteriosus is seen. There is no pericardial effusion. No atrial septal defect or ventricular septal defect is seen . Aortic Root measurements: Sinus of Valsalva: 4.4 cm (z-score: 2.5; normal range: 2.57 - 4.19 cm) ST Junction: 3.7 cm (z-score: 2.1; normal range: 2.17 - 3.66 cm) Arch Measurements: Ascending aorta at the level of the branch pulmonary arteries: 2.8 cm (z-score: -0.7; normal range: 2.32 - 3.86 cm) Proximal Transverse arch: 2.54 cm Distal Transverse Arch: 2.2 cm (z-score: -1; normal range: 1.87 - 3.18 cm) Juxtaductal position: 2.3 cm (z-score: 0.7; normal range: 1.29 - 2.77 cm) Aorta at the diaphragm: 1.8 cm Left Ventricular Functional Analysis: LV end diastolic volume: 213.5 mL LVEDV/BSA: 80 ml/m2 (z-score: -0.2, normal range: 53 - 112 ml/m2) LV end systolic volume: 87.8 mL LV end systolic volume/BSA: 32.9 mL/m2 LV Stroke volume:?125.7 mL LV ejection fraction:58.9% (normal: 55-73%) Right Ventricular Functional Analysis: RV end diastolic volume: 218.6 mL RVEDV/BSA: 81.9 ml/m2 (z-score: -0.3, normal range: 58 - 114 ml/m2) RV end systolic volume: 104.3 mL RV end systolic volume/BSA: 39.1 mL/m2 RV Stroke volume: 114.3 mL Right Ventricular ejection fraction: 52.3% (normal: 48-63%) Phase Contrast: aortic valve Net flow: 128.7 mL/beat IMPRESSION Impression 1. Marfan Syndrome. 2. Dilated aortic root and normal-sized ascending aorta (Aortic root: 4.4 x 4.35 cm, z: +2.5; Ascending aorta: 2.8 cm, z: -0.7) 3. Bicuspid aortic valve with left-right fusion with mild insufficiency. 4. Normal left ventricular size and systolic function. 5. Normal right ventricular size and systolic function. Study was reviewed by Dr. Yuri Ferreira and Dr. Carlito Guzman Alessandra Sidhu MD MR ORDERABLES * MRI CAR FUNC MORPH WO CONT (04/28/2017 9:00 AM DESIGN ASSISTANT) Anatomical Region Laterality Modality Magnetic Resonan ce 04/28/2017 12:0 9 PM DESIGN ASSISTANT Impressions 04/28/2017 3:42 PM DESIGN ASSISTANT Impression 1. Marfan Syndrome. 2. Dilated aortic root and normal-sized ascending aorta (Aortic root: 4.4 x 4.35 cm, z: +2.5; Ascending aorta: 2.8 cm, z: -0.7) 3. Bicuspid aortic valve with left-right fusion with mild insufficiency. 4. Normal left ventricular size and systolic function. 5. Normal right ventricular size and systolic function. Study was reviewed by Dr. Yuri Ferreira and Dr. Carlito Guzman Narrative 04/28/2017 3:42 PM DESIGN ASSISTANT Examination: Cardiac MRI morphology and function, Chest MRA contrast. Weight: 134.9 kg, Height: 197.5 cm, BSA: 2.67 m2 History: 17 year old male with history of Marfan Syndrome. Last echocardiogram from 06/12/2016 showed a bicuspid aortic valve with fusion of the left-right commissure. The aortic root measured 41 mm, z: +2.5, and the ascending aorta was normal measuring 31 mm. There was mild mitral valve prolapse.. Indication: MRI was performed to evaluate left ventricular size and function, aortic root, aortic arch. Sedation: No sedation was required. Comparison: None Technique: Using a 8 channel cardiac coil on a 1.5 T Deluux, the following sequences were performed: Three plane localizer. FIESTA single shot axial stack, FIESTA cine: 2 chamber left, 4 chamber, ventricular short-axis stack, ventricular long-axis stack, left ventricular outflow tract, Sagittal oblique long-axis of the aorta, Aortic root short-axis, respiratory gated ECG gated 3D whole heart FIESTA across the whole heart. Findings: The heart position is levocardic. The stomach is on the left. The liver is on the right. The superior vena cava and inferior vena cava drains into the right atrium. The right atrium is normal. The tricuspid valve is normal. The right ventricle is normal in size and function. Right ventricular?outflow tract is patent. Pulmonary valve is normal with no stenosis or regurgitation. The main pulmonary artery is patent. The branch pulmonary arteries are confluent. The left and right pulmonary artery are normal in course and caliber. Four pulmonary veins drain into the left atrium. The left atrium is normal. The mitral valve is normal. The left ventricle is normal in size and function. The left ventricular outflow tract is patent. The aortic valve is bicuspid with left-right fusion. There is mild insufficiency.. The aortic root is dilated, measuring 4.4x 4.3 cm in cross-section The ascending aorta is normal, measuring 2.8 cm in diameter. The coronary arteries have normal origins. The aortic arch is left-sided with normal branching. The aortic arch demonstrates no narrowing, aneurysm, or dissection. No patent ductus arteriosus is seen. There is no pericardial effusion. No atrial septal defect or ventricular septal defect is seen . Aortic Root measurements: Sinus of Valsalva: 4.4 cm (z-score: 2.5; normal range: 2.57 - 4.19 cm) ST Junction: 3.7 cm (z-score: 2.1; normal range: 2.17 - 3.66 cm) Arch Measurements: Ascending aorta at the level of the branch pulmonary arteries: 2.8 cm (z-score: -0.7; normal range: 2.32 - 3.86 cm) Proximal Transverse arch: 2.54 cm Distal Transverse Arch: 2.2 cm (z-score: -1; normal range: 1.87 - 3.18 cm) Juxtaductal position: 2.3 cm (z-score: 0.7; normal range: 1.29 - 2.77 cm) Aorta at the diaphragm: 1.8 cm Left Ventricular Functional Analysis: LV end diastolic volume: 213.5 mL LVEDV/BSA: 80 ml/m2 (z-score: -0.2, normal range: 53 - 112 ml/m2) LV end systolic volume: 87.8 mL LV end systolic volume/BSA: 32.9 mL/m2 LV Stroke volume:?125.7 mL LV ejection fraction:58.9% (normal: 55-73%) Right Ventricular Functional Analysis: RV end diastolic volume: 218.6 mL RVEDV/BSA: 81.9 ml/m2 (z-score: -0.3, normal range: 58 - 114 ml/m2) RV end systolic volume: 104.3 mL RV end systolic volume/BSA: 39.1 mL/m2 RV Stroke volume: 114.3 mL Right Ventricular ejection fraction: 52.3% (normal: 48-63%) Phase Contrast: aortic valve Net flow: 128.7 mL/beat Procedure Note Carlito Guzman MD - 04/28/2017 Examination: Cardiac MRI morphology and function, Chest MRA contrast. Weight: 134.9 kg, Height: 197.5 cm, BSA: 2.67 m2 History: 17 year old male with history of Marfan Syndrome. Last echocardiogram from 06/12/2016 showed a bicuspid aortic valve with fusion of the left-right commissure. The aortic root measured 41 mm, z: +2.5, and the ascending aorta was normal measuring 31 mm. There was mild mitral valve prolapse.. Indication: MRI was performed to evaluate left ventricular size and function, aortic root, aortic arch. Sedation: No sedation was required. Comparison: None Technique: Using a 8 channel cardiac coil on a 1.5 T Deluux, the following sequences were performed: Three plane localizer. FIESTA single shot axial stack, FIESTA cine: 2 chamber left, 4 chamber, ventricular short-axis stack, ventricular long-axis stack, left ventricular outflow tract, Sagittal oblique long-axis of the aorta, Aortic root short-axis, respiratory gated ECG gated 3D whole heart FIESTA across the whole heart. Findings: The heart position is levocardic. The stomach is on the left. The liver is on the right. The superior vena cava and inferior vena cava drains into the right atrium. The right atrium is normal. The tricuspid valve is normal. The right ventricle is normal in size and function. Right ventricular?outflow tract is patent. Pulmonary valve is normal with no stenosis or regurgitation. The main pulmonary artery is patent. The branch pulmonary arteries are confluent. The left and right pulmonary artery are normal in course and caliber. Four pulmonary veins drain into the left atrium. The left atrium is normal. The mitral valve is normal. The left ventricle is normal in size and function. The left ventricular outflow tract is patent. The aortic valve is bicuspid with left-right fusion. There is mild insufficiency.. The aortic root is dilated, measuring 4.4x 4.3 cm in cross-section The ascending aorta is normal, measuring 2.8 cm in diameter. The coronary arteries have normal origins. The aortic arch is left-sided with normal branching. The aortic arch demonstrates no narrowing, aneurysm, or dissection. No patent ductus arteriosus is seen. There is no pericardial effusion. No atrial septal defect or ventricular septal defect is seen . Aortic Root measurements: Sinus of Valsalva: 4.4 cm (z-score: 2.5; normal range: 2.57 - 4.19 cm) ST Junction: 3.7 cm (z-score: 2.1; normal range: 2.17 - 3.66 cm) Arch Measurements: Ascending aorta at the level of the branch pulmonary arteries: 2.8 cm (z-score: -0.7; normal range: 2.32 - 3.86 cm) Proximal Transverse arch: 2.54 cm Distal Transverse Arch: 2.2 cm (z-score: -1; normal range: 1.87 - 3.18 cm) Juxtaductal position: 2.3 cm (z-score: 0.7; normal range: 1.29 - 2.77 cm) Aorta at the diaphragm: 1.8 cm Left Ventricular Functional Analysis: LV end diastolic volume: 213.5 mL LVEDV/BSA: 80 ml/m2 (z-score: -0.2, normal range: 53 - 112 ml/m2) LV end systolic volume: 87.8 mL LV end systolic volume/BSA: 32.9 mL/m2 LV Stroke volume:?125.7 mL LV ejection fraction:58.9% (normal: 55-73%) Right Ventricular Functional Analysis: RV end diastolic volume: 218.6 mL RVEDV/BSA: 81.9 ml/m2 (z-score: -0.3, normal range: 58 - 114 ml/m2) RV end systolic volume: 104.3 mL RV end systolic volume/BSA: 39.1 mL/m2 RV Stroke volume: 114.3 mL Right Ventricular ejection fraction: 52.3% (normal: 48-63%) Phase Contrast: aortic valve Net flow: 128.7 mL/beat IMPRESSION Impression 1. Marfan Syndrome. 2. Dilated aortic root and normal-sized ascending aorta (Aortic root: 4.4 x 4.35 cm, z: +2.5; Ascending aorta: 2.8 cm, z: -0.7) 3. Bicuspid aortic valve with left-right fusion with mild insufficiency. 4. Normal left ventricular size and systolic function. 5. Normal right ventricular size and systolic function. Study was reviewed by Dr. Yuri Ferreira and Dr. Carlito Guzman Alessandra Sidhu MD MR ORDERABLES * CARDIAC ECHOCARDIOGRAM COMPLETE ORDER (10/15/2011 9:17 PM CDT) Narrative Transcriptions Document, Scanned - 10/15/2011 9:17 PM CDT Scanned Document ECHO ORDERABLES * HOLTER MONITOR (11/05/2009) Wesley Garrett MD CARDIAC SERVICES OR DERABLES Care Teams Fat Purification Worker Relationship Specialty Start Date End Date Vini Leonardo MD [address] [place] [address] PCP - General 10/13/10
--- OUTSIDE RECORDS SUMMARY | 2024-07-31 13:50 | XMS_ITS | Referral Summary ---
Author Organization [facility] Address [address] [place] [address] Care Team Providers Care Tableau Report Developer Name Role Phone Vini Leonardo MD Primary Care Provider [phone] Source Comments [facility],non-owned Affiliates and Associated Physician Practices is amultiple site organization consisting of ambulatory clinics and hospital sitesin [place], [place], [place] and [place]. This disclosure is being madepursuant to the Care Everywhere program and may not contain all information available regarding this patient. Last updated 18.[facility] Allergies No known active allergies [...] 10/20/2017 10:16 AM CDT Plan of Treatment Not on file Care Teams Tableau Report Developer Relationship Specialty Start Date End Date Vini Leonardo MD [address] [place] [address] PCP - General 10/13/10
--- OUTSIDE RECORDS SUMMARY | 2024-07-31 13:50 | XMS_ITS | Encounter Summary ---
Author Organization [facility] Address [address] [place] [address] Phone Care Team Providers Care Dye Beck Reel Operator Name Role Phone Pino Weber MD Primary Care Provider [phone] Silas Rodriguez MD Unavailable [phone] Encounter Details Date Type Department Care Team (Late st Contact Info) Description 09/25/2021 Telephone [facility] Cardiology [address] [address] Advanced Medicine [address] [place] [address] [place] [address] Silas Rodriguez MD [address] [facility] [address] [place] [address] Social History Tobacco Use Types [...] on file documented as of this encounter Plan of Treatment Not on file documented as of this encounter Visit Diagnoses Not on filedocumented in this encounter Care Teams Dye Beck Reel Operator Relationship Specialty Start Date End Date Pino Weber MD [address] [place] [address] PCP - General Family Medicine 05/15/19 Silas Rodriguez MD [address] [place] [address] Referring Physician Cardiology 05/19/19 documented as of this encounter
[2024-07-31 14:19] LABS: Hemoglobin A1C 6.3 % (<5.7)
== END 2024-07-31 12:06 | disposition home or self-care (01) ==
LOC: ANHLAB 12:06
PROVIDERS: PCP Family Medicine; Visit Provider Family Medicine
DX: Q87.40 Marfan syndrome, unspecified (principal); E66.01 Morbid (severe) obesity due to excess calories; Z13.220 Encounter for screening for lipoid disorders; Z13.1 Encounter for screening for diabetes mellitus
CPT/HCPCS: 36415; 80053; 80061; 83036; 85025